=== PATIENT | male | born 1980 | race Asian ===

== ENCOUNTER 2023-12-20 17:00 | Outpatient (CLI) | payer BC, SELFPAY | END 2023-12-20 17:01 | disposition home or self-care (01) | LOC: SLEEPLAB 17:00 | PROVIDERS: ATTEND Internal Medicine Critical Care Medicine | DX: G47.33 Obstructive sleep apnea (adult) (pediatric) (principal); R06.83 Snoring | CPT/HCPCS: 95800 ==